=== PATIENT | female | born 1965 | race Caucasian/White ===

== ENCOUNTER 2023-05-19 12:32 | Emergency (ER) | payer BC ==
[2023-05-19 16:01] LABS: BASOPHILS ABSOLUTE AUTO 0.1 K/mm3 (0.0-0.2); BASOPHILS PERCENT AUTO 0.6 % (0.0-1.0); HEMATOCRIT 37.7 % (37.0-47.0); HEMOGLOBIN 11.9 gm/dl (12.0-16.0); IMMATURE GRAN ABSOLUTE AUTO 0.02 K/mm3 (0.00-0.05); IMMATURE GRAN PERCENT AUTO 0.2 % (0.0-0.4); LYMPHOCYTES ABSOLUTE AUTO 3.2 K/mm3 (1.0-4.8); LYMPHOCYTES PERCENT AUTO 33.4 % (24.0-44.0); MEAN CORPUSCULAR HEMOGLOBIN 25.9 pg (28.0-32.0); MEAN CORPUSCULAR HGB CONC 31.6 g/dl (32.0-36.0); MEAN CORPUSCULAR VOLUME 82.1 fl (83.0-99.0); MEAN PLATELET VOLUME 8.5 fl (9.4-12.3); MONOCYTES ABSOLUTE AUTO 0.7 K/mm3 (0.0-0.8); MONOCYTES PERCENT AUTO 7.1 % (0.0-8.0); NEUTROPHILS ABSOLUTE AUTO 5.6 K/mm3 (1.8-7.7); NEUTROPHILS PERCENT AUTO 58.7 % (41.0-71.0); PLATELET COUNT,PLT 329 K/mm3 (150-400); RED BLOOD CELL COUNT 4.59 M/mm3 (4.10-5.30); WHITE BLOOD CELL COUNT,WBC 9.57 K/mm3 (3.9-11.3)
[2023-05-19 16:23] LABS: A/G RATIO 0.9 (1-2); ALANINE AMINOTRANSFERASE,ALT 26 U/L (14-59); ALBUMIN 3.2 g/dl (3.4-5.0); ALKALINE PHOSPHATASE 63 U/L (46-116); ANION GAP 11.2 (5-15); ASPARTATE AMNIOTRANSFERASE,AST 13 U/L (15-37); BILIRUBIN TOTAL 0.2 mg/dL (0.2-1.0); BLOOD UREA NITROGEN,BUN 10 mg/dL (7-18); BUN/CREATININE RATIO 12.5 (14-18); CALCIUM 9.2 mg/dL (8.5-10.1); CARBON DIOXIDE,CO2 29 mEq/L (21-32); CHLORIDE,CL 106 mEq/L (98-107); CREATININE 0.8 mg/dL (0.55-1.02); EST CRCL DRUG DOSING (CG) 71.76 mL/min; ESTIMATED GFR 85 mL/min (>60); GLUCOSE RANDOM 127 mg/dL (70-99); POTASSIUM,K 4.2 mEq/L (3.5-5.1); PROTEIN TOTAL,TP 6.7 g/dl (6.4-8.2); SODIUM,NA 142 mEq/L (136-145)
[2023-05-19 16:43] LABS: TROPONIN I HIGH SENSITIVITY < 4 pg/mL (<=51)
[2023-05-19 17:45] VITALS: BP 111/91; PULSE 96
== END 2023-05-19 17:23 | disposition home or self-care (01) ==
LOC: JD.ED 12:32
DX: R07.89 Other chest pain (principal); R51.9 Headache, unspecified; I10 Essential (primary) hypertension; E11.9 Type 2 diabetes mellitus without complications; E78.00 Pure hypercholesterolemia, unspecified; Z79.84 Long term (current) use of oral hypoglycemic drugs; Z79.899 Other long term (current) drug therapy; Z88.7 Allergy status to serum and vaccine
CPT/HCPCS: 36415; 71046; 71046-26; 80053; 84484; 85025; 85379; 93005; 99285

== ENCOUNTER 2023-11-03 08:46 | Emergency (ER) | payer BC ==
[2023-11-03 08:55] VITALS: BP 125/91; PULSE 105
[2023-11-03 09:38] LABS: BASOPHILS ABSOLUTE AUTO 0.1 K/mm3 (0.0-0.2); BASOPHILS PERCENT AUTO 0.9 % (0.0-1.0); HEMATOCRIT 39.3 % (37.0-47.0); HEMOGLOBIN 12.4 gm/dl (12.0-16.0); IMMATURE GRAN ABSOLUTE AUTO 0.01 K/mm3 (0.00-0.05); IMMATURE GRAN PERCENT AUTO 0.2 % (0.0-0.4); LYMPHOCYTES ABSOLUTE AUTO 1.7 K/mm3 (1.0-4.8); LYMPHOCYTES PERCENT AUTO 30.9 % (24.0-44.0); MEAN CORPUSCULAR HGB CONC 31.6 g/dl (32.0-36.0); MEAN CORPUSCULAR VOLUME 82.4 fl (83.0-99.0); MEAN PLATELET VOLUME 8.6 fl (9.4-12.3); MONOCYTES ABSOLUTE AUTO 0.9 K/mm3 (0.0-0.8); MONOCYTES PERCENT AUTO 15.8 % (0.0-8.0); NEUTROPHILS ABSOLUTE AUTO 2.8 K/mm3 (1.8-7.7); NEUTROPHILS PERCENT AUTO 52.2 % (41.0-71.0); PLATELET COUNT,PLT 332 K/mm3 (150-400); RED BLOOD CELL COUNT 4.77 M/mm3 (4.10-5.30); WHITE BLOOD CELL COUNT,WBC 5.44 K/mm3 (3.9-11.3)
[2023-11-03] MEDS: Sodium Chloride 0.9% 10 ML Syringe FLUSH PRN (09:44)
[2023-11-03 10:07] LABS: A/G RATIO 1.1 (1-2); ALANINE AMINOTRANSFERASE,ALT 31 U/L (14-59); ALBUMIN 3.6 g/dl (3.4-5.0); ALKALINE PHOSPHATASE 70 U/L (46-116); ANION GAP 14.9 (5-15); ASPARTATE AMNIOTRANSFERASE,AST 18 U/L (15-37); BILIRUBIN TOTAL 0.3 mg/dL (0.2-1.0); BLOOD UREA NITROGEN,BUN 12 mg/dL (7-18); BUN/CREATININE RATIO 13.3 (14-18); C-REACTIVE PROTEIN 0.23 mg/dL (<0.30); CALCIUM 9.4 mg/dL (8.5-10.1); CARBON DIOXIDE,CO2 25 mEq/L (21-32); CHLORIDE,CL 103 mEq/L (98-107); CREATININE 0.9 mg/dL (0.55-1.02); EST CRCL DRUG DOSING (CG) 48.34 mL/min; ESTIMATED GFR 74 mL/min (>60); GLUCOSE RANDOM 100 mg/dL (70-99); MAGNESIUM 1.9 mg/dL (1.8-2.4); POTASSIUM,K 3.9 mEq/L (3.5-5.1); SODIUM,NA 139 mEq/L (136-145)
[2023-11-03 10:10] LABS: TROPONIN I HIGH SENSITIVITY < 4 pg/mL (<=51)
[2023-11-03] MEDS: Diclofenac Sodium 1% Gel 100 GM Tube TOP ONE (10:25)
[2023-11-03 10:59] LABS: APPEARANCE,URINE SLT CLOUDY (Clear); BILIRUBIN,URINE NEGATIVE (Negative); COLOR,URINE YELLOW (Yellow); GLUCOSE,URINE NEGATIVE (Negative); KETONES,URINE NEGATIVE (Negative); LEUKOCYTE ESTERASE,URINE NEGATIVE (Negative); NITRITE,URINE NEGATIVE (Negative); OCCULT BLOOD,URINE NEGATIVE (Negative); PH,URINE 5.5 (5.0-8.0); PROTEIN,URINE NEGATIVE (Negative); UROBILINOGEN,URINE 0.2 (0.2-1.0)
== END 2023-11-03 10:35 | disposition home or self-care (01) ==
LOC: JD.ED 08:46
DX: M94.0 Chondrocostal junction syndrome [Tietze] (principal); I10 Essential (primary) hypertension; E78.00 Pure hypercholesterolemia, unspecified; E11.9 Type 2 diabetes mellitus without complications; K21.9 Gastro-esophageal reflux disease without esophagitis; Z79.84 Long term (current) use of oral hypoglycemic drugs; Z90.710 Acquired absence of both cervix and uterus; Z88.5 Allergy status to narcotic agent; Z88.7 Allergy status to serum and vaccine
CPT/HCPCS: 36415; 80053; 81003; 83735; 84484; 85025; 86140; 93005; 99285; A9270; J3490

== ENCOUNTER 2024-11-29 11:46 | Emergency (ER) | payer BC ==
[2024-11-29] MEDS ORDERED: Sodium Chloride 0.9% 10 ML Syringe FLUSH PRN (12:19)
[2024-11-29 12:30] LABS: BASOPHILS ABSOLUTE AUTO 0.0 K/mm3 (0.0-0.2); BASOPHILS PERCENT AUTO 0.4 % (0.0-1.0); EOSINOPHILS ABSOLUTE AUTO 0.0 K/mm3 (0.0-0.4); EOSINOPHILS PERCENT AUTO 0.0 % (0.0-6.0); IMMATURE GRAN ABSOLUTE AUTO 0.04 K/mm3 (0.00-0.05); IMMATURE GRAN PERCENT AUTO 0.4 % (0.0-0.4); LYMPHOCYTES ABSOLUTE AUTO 2.3 K/mm3 (1.0-4.8); LYMPHOCYTES PERCENT AUTO 21.9 % (24.0-44.0); MEAN PLATELET VOLUME 8.6 fl (9.4-12.3); MONOCYTES ABSOLUTE AUTO 0.8 K/mm3 (0.0-0.8); MONOCYTES PERCENT AUTO 7.7 % (0.0-8.0); NEUTROPHILS ABSOLUTE AUTO 7.3 K/mm3 (1.8-7.7); NEUTROPHILS PERCENT AUTO 69.6 % (41.0-71.0); NRBC ABSOLUTE 0.00 (0.00-0.02); NRBC PERCENT 0.0 % (0.0-0.2); PLATELET COUNT,PLT 325 K/mm3 (150-400); RED BLOOD CELL COUNT 4.37 M/mm3 (4.10-5.30); WHITE BLOOD CELL COUNT,WBC 10.53 K/mm3 (3.9-11.3)
[2024-11-29 13:00] LABS: A/G RATIO 1.0 (1-2); ALANINE AMINOTRANSFERASE,ALT 47.0 U/L (14-59); ASPARTATE AMNIOTRANSFERASE,AST 20.0 U/L (15-37); BILIRUBIN TOTAL 0.3 mg/dL (0.2-1.0); BLOOD UREA NITROGEN,BUN 14.0 mg/dL (7-18); CARBON DIOXIDE,CO2 26.0 mEq/L (21-32); CHLORIDE,CL 106.0 mEq/L (98-107); CREATININE 0.9 mg/dL (0.55-1.02); EST CRCL DRUG DOSING (CG) 47.75 mL/min; ESTIMATED GFR 73.0 mL/min (>60); GLUCOSE RANDOM 97.0 mg/dL (70-99); POTASSIUM,K 3.9 mEq/L (3.5-5.1); PROTEIN TOTAL,TP 6.5 g/dl (6.4-8.2); SODIUM,NA 140.0 mEq/L (136-145); TROPONIN I HIGH SENSITIVITY 4.0 pg/mL (<=51)
[2024-11-29 14:22] VITALS: BP 125/70; PULSE 74
== END 2024-11-29 14:05 | disposition home or self-care (01) ==
LOC: JD.ED 11:46
DX: R07.89 Other chest pain (principal); I10 Essential (primary) hypertension; E78.00 Pure hypercholesterolemia, unspecified; K21.9 Gastro-esophageal reflux disease without esophagitis; E11.9 Type 2 diabetes mellitus without complications; Z88.6 Allergy status to analgesic agent; Z88.7 Allergy status to serum and vaccine; Z79.899 Other long term (current) drug therapy; Z90.710 Acquired absence of both cervix and uterus
CPT/HCPCS: 36415; 71045; 71045-26; 80053; 83735; 84484; 85025; 85379; 93005; 93010; 99284; 99285